=== PATIENT | male | born 1990 | race Caucasian/White ===

== ENCOUNTER 2016-06-30 17:33 | Emergency (ER) | payer OTHER ==
[~2016-06-30] VITALS: Ht 167.6 cm; Wt 75.0 kg
[2016-06-30 21:18] VITALS: BP 131/84
== END 2016-06-30 21:51 | disposition home or self-care (01) ==
LOC: EMS 18:06
DX: G47.00 Insomnia, unspecified (principal); R51 Headache
CPT/HCPCS: 99283

== ENCOUNTER 2016-07-01 17:29 | Emergency (ER) | payer OTHER ==
[~2016-07-01] VITALS: Ht 167.6 cm; Wt 85.0 kg
[2016-07-01 19:54] LABS: APPEARANCE,URINE CLEAR (CLEAR); GLUCOSE, URINE (UA) NEGATIVE (NEGATIVE); KETONES,URINE NEGATIVE (NEGATIVE); LEUKOCYTE ESTERASE ,URINE NEGATIVE (NEGATIVE); OCCULT BLOOD,URINE NEGATIVE (NEGATIVE); PH,URINE 5.5 (5.0-8.0); PROTEIN,URINE NEGATIVE (NEGATIVE)
[2016-07-01 19:57] LABS: ADD UA MICROSCOPIC NO
[2016-07-01 20:35] VITALS: BP 136/80
== END 2016-07-01 20:51 | disposition home or self-care (01) ==
LOC: EMS 17:31
DX: A60.00 Herpesviral infection of urogenital system, unspecified (principal)
CPT/HCPCS: 99283